=== PATIENT | female | born 1995 | race African-American/Black ===

== ENCOUNTER → 2017-02-04 | Outpatient (CLI) | payer BC | LOC: MRI 11:20 | DX: S06.0X9A Concussion with loss of consciousness of unspecified duration, initial encounter (principal); H47.10 Unspecified papilledema; H53.9 Unspecified visual disturbance; X58.XXXA Exposure to other specified factors, initial encounter; Y93.89 Activity, other specified; Y92.89 Other specified places as the place of occurrence of the external cause; Y99.8 Other external cause status ==